=== PATIENT | female | born 1985 | race Two or more races ===

== ENCOUNTER 2016-08-15 09:02 | Emergency (ER) | payer OTHER, MEDICAID ==
[~2016-08-15] VITALS: Ht 144.8 cm; Wt 39.9 kg
[2016-08-15 09:13] VITALS: BP 139/68
== END 2016-08-15 11:43 | disposition home or self-care (01) ==
LOC: ER 09:03
DX: H10.32 Unspecified acute conjunctivitis, left eye (principal)